=== PATIENT | female | born 1975 | race Caucasian/White ===

== ENCOUNTER 2019-11-19 12:19 | Emergency (ER) | payer BC ==
[~2019-11-19] VITALS: Ht 152.4 cm; Wt 61.7 kg
--- NOTE | 2019-11-19 12:28 | NUR ---
came in w c/o dizziness, "woke up this am around 3-Dizzy/room spinning. Worse w/turn to Right Nausea/vomiting this am" to ER bed 1, hooked tomonitor, changed to hosp gown, warm blanket provided, patient aao X 4, breathing even and unlabored. Dr Ford at bedside
[2019-11-19] MEDS ORDERED: METOCLOPRAMIDE HCL 10 MG/2 ML VIAL ONE (12:55)
[2019-11-19] MEDS ORDERED: MECLIZINE HCL 25 MG TABLET ONE (12:55)
[2019-11-19] MEDS: IV NS 0.9% 1,000 ML BAG IV ONE (13:01)
[2019-11-19] MEDS: MECLIZINE HCL 12.5 MG TABLET PO ONE (13:02)
[2019-11-19] MEDS: METOCLOPRAMIDE HCL 10 MG/2 ML VIAL IV ONE (13:02)
[2019-11-19 13:04] LABS: BASOPHILS % (AUTO) 0.2 % (0.0-2.0); EOSINOPHILS % (AUTO) 0.1 % (0.0-6.0); HEMATOCRIT 41 % (33-45); HEMOGLOBIN 13.7 g/dL (11.5-14.8); LYMPHOCYTES # (AUTO) 0.8 /CMM (0.8-4.8); LYMPHOCYTES % (AUTO) 7.8 % (20.0-44.0); MEAN CORPUSCULAR HGB CONC 33 g/dl (31.0-36.0); MEAN CORPUSCULAR VOLUME 90 fL (82-100); MONOCYTES # (AUTO) 0.5 /CMM (0.1-1.30); MONOCYTES % (AUTO) 4.9 % (2.0-12.0); NEUTROPHILS # (AUTO) 9.2 /CMM (1.8-8.9); PLATELET COUNT (AUTO) 222 /CMM (150-450); RED BLOOD CELL COUNT(AUTO) 4.58 MIL/uL (4.0-5.2); WHITE BLOOD COUNT (AUTO) 10.6 K/uL (4.3-11.0)
[2019-11-19 13:05] LABS: CALCIUM, SERUM 8.4 mg/dL (8.5-10.1); CREATININE 0.8 mg/dL (0.6-1.3); POTASSIUM 4.4 mmol/L (3.5-5.1)
--- NOTE | 2019-11-19 14:02 | NUR ---
PATIENT STATES NOT FEELING DIZZY ANYMORE. MADE MD AWARE
--- NOTE | 2019-11-19 14:24 | NUR ---
IV removed. Catheter intact and site benign. Pressure and 4x4 applied to site. No bleeding noted.
--- NOTE | 2019-11-19 14:27 | NUR ---
Patient discharged to home in stable condition. Written and verbal after care instructions given. Patient verbalizes understanding of instruction. Family waiting in waiting room
[2019-11-19 14:28] VITALS: BP 124/68
== END 2019-11-19 14:29 | disposition home or self-care (01) ==
LOC: ER 12:29
DX: H81.10 Benign paroxysmal vertigo, unspecified ear (principal); R11.2 Nausea with vomiting, unspecified
CPT/HCPCS: 36415; 80048; 85025; 93005; 96374; 99284; J2765; J7030 ×2; J8597